=== PATIENT | male | born 1970 | race Hispanic/Latino ===

== ENCOUNTER 2019-06-08 11:19 | Emergency (ER) | payer SELFPAY ==
[~2019-06-08] VITALS: Ht 182.9 cm; Wt 90.7 kg
--- OUTSIDE RECORDS SUMMARY | 2019-06-08 11:22 | XMS REPORT ---
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 Allergies, Adverse Reactions, Alerts Allergy Name Allergy Type Status Severity Reaction(s) Onset Date Inactive Date Treating Clinician Comments No Known Allergies DA Active U 2016-01-09 00:00:00 Medications This patient has no known medications. Results Test Description Test Time Test Comments Text Results Atomic Results Result Comments BASIC METABOLIC PANEL 2019-05-03 20:55:00 SODIUM (test code=NA) 140 mEq/L 134-147 POTASSIUM (test code=K) 4.3 mEq/L 3.4-5.0 CHLORIDE (test code=CL) 108 mEq/L 100-108 CARBON DIOXIDE (test code=CO2) 30 mEq/L 21-33 ANION GAP (test code=GAP) 6 0-20 GLUCOSE (test code=GLU) 92 mg/dL 70-110 BLOOD UREA NITROGEN (test code=BUN) 14 mg/dL 7-18 GLOMERULAR FILTRATION RATE (test code=GFR) 89.3 90-95 Units of measure=ml/min/1.73 m2 CREATININE (test code=CREAT) 0.9 mg/dL 0.6-1.3 CALCIUM (test code=CA) 8.9 mg/dL 8.0-10.5 HEPATIC FUNCTION [id number] 20:55:00* Test Item Value Reference Range Comments TOTAL PROTEIN (test code=PROT) 7.5 g/dL 6.4-8.2 ALBUMIN (test code=ALB) 4.00 g/dL 3.4-5.0 BILIRUBIN TOTAL (test code=BILT) 0.30 mg/dL 0.0-1.0 BILIRUBIN DIRECT (test code=BILD) < 0.10 MG/DL 0.0-0.30 BILIRUBIN INDIRECT (test code=BILIND) 0.20 MG/DL SGOT/AST (test code=AST) 19 IUnit/L 15-37 SGPT/ALT (test code=ALT) 27 IUnit/L 15-65 ALKALINE PHOSPHATASE TOTAL (test code=ALKP) 58 IUnit/L 20-125 BASIC METABOLIC [id number] 20:49:00* Test Item Value Reference Range Comments SODIUM (test code=NA) 140 mEq/L 134-147 POTASSIUM (test code=K) 4.3 mEq/L 3.4-5.0 CHLORIDE (test code=CL) 108 mEq/L 100-108 CARBON DIOXIDE (test code=CO2) 30 mEq/L 21-33 ANION GAP (test code=GAP) 6 0-20 GLUCOSE (test code=GLU) 92 mg/dL 70-110 BLOOD UREA NITROGEN (test code=BUN) 14 mg/dL 7-18 GLOMERULAR FILTRATION RATE (test code=GFR) 90-95 CREATININE (test code=CREAT) mg/dL 0.6-1.3 CALCIUM (test code=CA) 8.9 mg/dL 8.0-10.5 HEPATIC FUNCTION [id number] 20:49:00* Test Item Value Reference Range Comments TOTAL PROTEIN (test code=PROT) g/dL 6.4-8.2 ALBUMIN (test code=ALB) g/dL 3.4-5.0 BILIRUBIN TOTAL (test code=BILT) mg/dL 0.0-1.0 BILIRUBIN DIRECT (test code=BILD) MG/DL 0.0-0.30 SGOT/AST (test code=AST) IUnit/L 15-37 SGPT/ALT (test code=ALT) IUnit/L 15-65 ALKALINE PHOSPHATASE TOTAL (test code=ALKP) IUnit/L 20-125 CBC W/AUTO [id number] 20:38:00* Test Item Value Reference Range Comments WHITE BLOOD CELL (test code=WBC) 9.57 x10 3/uL 4.5-11.0 RED BLOOD CELL (test code=RBC) 5.03 x10 6/uL 4.00-5.60 HEMOGLOBIN (test code=HGB) 14.2 g/dL 12.5-16.9 HEMATOCRIT (test code=HCT) 43.0 % 37.5-50.7 MEAN CELL VOLUME (test code=MCV) 85.5 fL 81.0-99.0 MEAN CELL HGB (test code=MCH) 28.2 pg 27.0-33.0 MEAN CELL HGB CONCETRATION (test code=MCHC) 33.0 g/dL 33.0-37.0 RED CELL DISTRIBUTION WIDTH CV (test code=RDW) 13.7 % 11.5-14.5 RED CELL DISTRIBUTION WIDTH SD (test code=RDW-SD) 42.5 fL 37.0-54.0 PLATELET COUNT (test code=PLT) 315 x10 3/uL 150-400 MEAN PLATELET VOLUME (test code=MPV) 11.0 fL 7.0-9.0 NEUTROPHIL % (test code=NT%) 45.8 % 56.0-77.0 IMMATURE GRANULOCYTE % (test code=IG%) 0.2 % 0.0-2.0 LYMPHOCYTE % (test code=LY%) 39.6 % 14.0-32.0 MONOCYTE % (test code=MO%) 7.9 % 4.8-9.0 EOSINOPHIL % (test code=EO%) 5.1 % 0.3-3.7 BASOPHIL % (test code=BA%) 1.4 % 0.0-2.0 NUCLEATED RBC % (test code=NRBC%) 0.0 % 0-0 NEUTROPHIL # (test code=NT#) 4.38 x10 3/uL 2.0-7.6 IMMATURE GRANULOCYTE # (test code=IG#) 0.02 x10 3/uL 0.00-0.03 LYMPHOCYTE # (test code=LY#) 3.79 x10 3/uL 1.0-3.8 MONOCYTE # (test code=MO#) 0.76 x10 3/uL 0.1-0.8 EOSINOPHIL # (test code=EO#) 0.49 x10 3/uL 0.0-0.2 BASOPHIL # (test code=BA#) 0.13 x10 3/uL 0.0-0.2 NUCLEATED RBC # (test code=NRBC#) 0.00 x10 3/uL 0.0-0.1 MANUAL DIFF REQUIRED (test code=MDIFF) NO
[2019-06-08 11:33] VITALS: BP 144/85
== END 2019-06-08 11:36 | disposition home or self-care (01) ==
LOC: ER 11:19
DX: M54.5 Low back pain (principal); S39.012A Strain of muscle, fascia and tendon of lower back, initial encounter; V43.62XA Car passenger injured in collision with other type car in traffic accident, initial encounter; Y92.488 Other paved roadways as the place of occurrence of the external cause
CPT/HCPCS: 99282